=== PATIENT | female | born 1970 | race Caucasian/White ===

== ENCOUNTER 2017-09-10 17:42 | Inpatient (IN) | payer OTHER ==
[~2017-09-10] VITALS: Ht 172.7 cm; Wt 97.4 kg
[2017-09-10 17:43] VITALS: BP 132/84; PULSE 104; RESP 20; TEMP 97.9; O2SAT 98
--- NOTE | 2017-09-10 18:39 | PD ---
Physical Exam Date Seen by Provider: Sep 10, 2017 Time Seen by Provider: 18:34 Narrative 47-year-old white female presents from her apartment voluntary basis for psychological evaluation. 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 She had made statements of a suicidal nature. She has no current plan of self-harm but states that she is concerned that she may herself. She states that she was going to be turned into the board of nursing Patient without an order. No homicidal ideation. No toxic ingestions. Vital signs reviewed. Pt waiting for bed placement. Data Data Last Documented VS Vital Signs Date Time Temp Pulse Resp B/P (MAP) Pulse Ox O2 Delivery O2 Flow Rate FiO2 09/10/17 17:43 97.9 104 20 132/84 (100) 98 Room Air [facility] Medical Record Reviewed: No Supervised Visit with UJNO: Rivera Hardwick Sep 10, 2017 18:39
[2017-09-10 19:31] LABS: AUTOMATED NEUTROPHIL # 11.5 TH/MM3 (1.8-7.7); BASOPHIL # 0.1 TH/MM3 (0-0.2); BASOPHIL % 0.6 % (0.0-2.0); EOSINOPHIL # 0.1 TH/MM3 (0-0.4); EOSINOPHIL % 0.7 % (0.0-4.0); HEMATOCRIT 44.3 % (35.0-46.0); HEMO FLAGS DIFF FINAL; LYMPH % 18.7 % (9.0-44.0); LYMPHOCYTE # 2.9 TH/MM3 (1.0-4.8); MEAN CELL VOLUME 90.4 FL (80.0-100.0); MEAN CORPUSCULAR HGB CONC 34.3 % (32.0-36.0); MONO % 4.8 % (0.0-8.0); NEUT % 75.2 % (16.0-70.0); PLATELET COUNT 472 TH/MM3 (150-450); RED CELL DISTRIBUTION WIDTH 13.2 % (11.6-17.2); WHITE BLOOD COUNT 15.3 TH/MM3 (4.0-11.0)
[2017-09-10 19:32] LABS: ANION GAP 9 MEQ/L (5-15); AST (GOT) 17 U/L (15-37); BICARBONATE 25.3 MEQ/L (21.0-32.0); BLOOD UREA NITROGEN 13 MG/DL (7-18); CHLORIDE 99 MEQ/L (98-107); GLOMERULAR FILTRATION RATE 54 ML/MIN (>89); POTASSIUM 4.2 MEQ/L (3.5-5.1); SODIUM (NA) 133 MEQ/L (136-145)
[2017-09-10 19:33] LABS: ALT (GPT) 33 U/L (10-53)
[2017-09-10 19:35] LABS: ALKALINE PHOSPHATASE 73 U/L (45-117); TOTAL BILIRUBIN ADULT 0.5 MG/DL (0.2-1.0)
[2017-09-10 19:40] LABS: ACETAMINOPHEN LESS THAN 2.0 MCG/ML (10.0-30.0); ALCOHOL LESS THAN 3 MG/DL (0-5)
--- NOTE | 2017-09-10 19:41 | PD ---
HPI Chief Complaint: Psychiatric Symptoms Time Seen by Provider: 19:22 Travel History International Travel<30 days: No Contact w/Intl Traveler<30days: No Traveled to known affect area: No History of Present Illness HPI 47-year-old female that presents to the ED for evaluation of depression. Patient came here voluntarily for this. Patient is a male transferring into a female. Per patient she has been dealing with depression especially since January. Per patient in January she lost her and ever since she's been feeling more depressed. Today she had termination from her job secondary to a medical error. She is an RN. She states that she felt very depressed and hopeless and she was told to come here for evaluation. She came here on her own accord. She states that she takes no medications for depression. She states that overall she's been feeling hopeless and depressed secondary to loss of as well as worsening stressors. She denies any chest pain or shortness of breath. No other medical issues. She has a drug abuse or alcohol abuse. No allergies to medication. Has not seen a psychiatrist for this. Symptoms worse today because of loss of job. PFSH Social History Alcohol Use: No Tobacco Use: No Substance Use: No Allergies-Medications (Allergen,Severity, Reaction): Coded Allergies: No Known Allergies (Unverified , 09/10/17) Review of Systems Except as stated in HPI: all other systems reviewed are Neg Physical Exam Narrative GENERAL: SKIN: Warm and dry. HEAD: Atraumatic. Normocephalic. EYES: Pupils equal and round. No scleral icterus. No injection or drainage. ENT: No nasal bleeding or discharge. Mucous membranes pink and moist. Tongue is midline. No uvula deviation. NECK: Trachea midline. No JVD. CARDIOVASCULAR: Regular rate and rhythm. No murmurs, S3, S4. RESPIRATORY: No accessory muscle use. Clear to auscultation. Breath sounds equal bilaterally. GASTROINTESTINAL: Abdomen soft, non-tender, nondistended. Hepatic and splenic margins not palpable. MUSCULOSKELETAL: Extremities without clubbing, cyanosis, or edema. No obvious deformities. Full range of motion of the upper and lower extremities bilaterally. 2+ pulses bilaterally. NEUROLOGICAL: Awake and alert. No obvious cranial nerve deficits. Motor grossly within normal limits. Five out of 5 muscle strength in the arms and legs. Normal speech. PSYCHIATRIC: Appropriate mood and affect; insight and judgment normal. Data Data Last Documented VS Vital Signs Date Time Temp Pulse Resp B/P (MAP) Pulse Ox O2 Delivery O2 Flow Rate FiO2 09/10/17 17:43 97.9 104 20 132/84 (100) 98 Room Air Orders Orders Complete Blood Count With Diff (09/10/17 18:40) Comprehensive Metabolic Panel (09/10/17 18:40) Ed Urine Pregnancytest Poc (09/10/17 18:40) Psych Screen (09/10/17 18:40) Drug Screen, Random Urine (09/10/17 18:40) Alcohol (Ethanol) (09/10/17 18:40) Salicylates (Aspirin) (09/10/17 18:40) Tylenol (Acetaminophen) (09/10/17 18:40) Labs Laboratory Tests Test 09/10/17 18:44 White Blood Count 15.3 TH/MM3 Red Blood Count 4.90 MIL/MM3 Hemoglobin 15.2 GM/DL Hematocrit 44.3 % Mean Corpuscular Volume 90.4 FL Mean Corpuscular Hemoglobin 31.0 PG Mean Corpuscular Hemoglobin Concent 34.3 % Red Cell Distribution Width 13.2 % Platelet Count 472 TH/MM3 Mean Platelet Volume 6.9 FL Neutrophils (%) (Auto) 75.2 % Lymphocytes (%) (Auto) 18.7 % Monocytes (%) (Auto) 4.8 % Eosinophils (%) (Auto) 0.7 % Basophils (%) (Auto) 0.6 % Neutrophils # (Auto) 11.5 TH/MM3 Lymphocytes # (Auto) 2.9 TH/MM3 Monocytes # (Auto) 0.7 TH/MM3 Eosinophils # (Auto) 0.1 TH/MM3 Basophils # (Auto) 0.1 TH/MM3 CBC Comment DIFF FINAL Differential Comment Salicylates Level LESS THAN 1.7 MG/DL Urine Opiates Screen NEG Urine Barbiturates Screen NEG Urine Amphetamines Screen POS Urine Benzodiazepines Screen NEG Urine Cocaine Screen NEG Urine Cannabinoids Screen NEG MDM Medical Decision Making Medical Screen Exam Complete: Yes Emergency Medical Condition: Yes Medical Record Reviewed: Yes Interpretation(s) CBC Diagram 09/10/17 18:44 tox positive for amphetamines Differential Diagnosis Depression versus suicidal ideation versus anxiety versus adjustment disorder versus mood disorder versus bipolar disorder versus schizophrenia versus paranoid disorder versus psychosis versus substance abuse versus alcohol abuse versus alcohol induced psychosis versus homicidality addition versus cutting versus personality disorder Narrative Course 47-year-old female that presents to the ED for evaluation of psych. Patient was properly examined and was found to have signs and symptoms consistent psychiatric illness. No sign of acute medical distress. Labs were drawn. Patient was medically cleared. Okay to be seen by psych. Mental health screening was discussed with the patient. Patient will likely be admitted to the psychiatric team for further treatment and management. Diagnosis Primary Impression: Depression Qualified Codes: F32.1 - Major depressive disorder, single episode, moderate Bobby De La Gazra Sep 10, 2017 19:41
[2017-09-10] MEDS ORDERED: SPIR100T PO (19:50)
[2017-09-10] MEDS ORDERED: PHEN37.54 PO (19:55)
[2017-09-10] MEDS ORDERED: ESTR2TAB PO (19:55)
[2017-09-10] MEDS ORDERED: ACET25TA2 PO (20:17)
[2017-09-10 21:25] VITALS: BP 129/76; PULSE 85; RESP 18; TEMP 97.4
[2017-09-10] MEDS ORDERED: ACETAMINOPHEN 325 MG TAB PO PRN (21:45)
[2017-09-10] MEDS ORDERED: hydrOXYzine HCL 50 MG TAB PO PRN (21:45)
[2017-09-10] MEDS ORDERED: ALUMINUM/MAGNESIUM/SIMETH 30 ML CUP PO PRN (21:45)
[2017-09-10] MEDS ORDERED: diphenhydrAMINE HCL 50 MG CAP - HS PRN PO (21:45)
[2017-09-10] MEDS ORDERED: diphenhydrAMINE HCL 50 MG/ML VIAL - HS PRN IM (21:45)
[2017-09-10] MEDS ORDERED: MAGNESIUM HYDROXIDE SUSP 30 ML CUP PO PRN (21:45)
[2017-09-11 06:36] VITALS: BP 130/60; PULSE 75; RESP 18; TEMP 97.4
[2017-09-11] MEDS ORDERED: SPIRONOLACTONE 100 MG TAB PO SCH (09:00)
[2017-09-11] MEDS ORDERED: ESTRADIOL 1 MG TAB PO SCH (09:00)
--- NOTE | 2017-09-11 10:47 | HHI.HP ---
Provisional Diagnosis Admission Date Sep 10, 2017 at 20:59 Sentinel I. 1. Adjustment disorder, unspecified 2. Reported history of gender identity disorder Sentinel II. 1. Cluster B personality traits Certification of Person's Competence To Provide Express and Informed Consent I have personally examined Meliza Jiménez , a person being served at [facility] on, Sep 11, 2017 10:47. Express and informed consent means consent voluntarily given in writing, by a competent person, after sufficient explanation and disclosure of the subject matter involved to enable the person to make a knowing and willful decision without any element of force, fraud, deceit, duress, or other form of constraint or coercion. This person is 18 years of age or older, is not now known to be incompetent to consent to treatment with a guardian advocate, and does not have a health care surrogate or proxy currently making medical treatment decisions. I have found this person to be one of the following: [x] Competent to provide express and informed consent, as defined above, for voluntary admission to this facility and is competent to provide express and informed consent for treatment. He/she has the consistent capacity to make well reasoned, willful, and knowing decisions concerning his or her medical or mental health treatment. The person fully and consistently understands the purpose of the admission for examination/placement and is fully capable of personally exercising all rights assured [place] Incompetent to provide express and informed consent to voluntary admission, and this is incompetent to provide express and informed consent to treatment. The person must be transferred to involuntary status and a petition for a guardian advocate filed with the Circuit Court. [] Refusing to provide express and informed consent to voluntary admission but is competent to provide express and informed consent for treatment. The person must be discharged or transferred to involuntary status. Form shall be completed within 24 hours of a person's arrival at the receiving facility and filed in the clinical record of each person: 1. Admitted on a voluntary basis 2. Permitted to provide express and informed consent to his/her own treatment 3. Allowed to transfer from involuntary to voluntary status 4. Prior to permitting a person to consent to his or her own treatment after having been previously found incompetent to consent to treatment. History of Present Illness Capacity: Has Capacity Psych Chief Complaint: psychiatric evaluation HPI Ms. Jiménez is a 47-year-old male to female transgender patient who presented to the emergency department voluntarily for psychiatric evaluation. 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 Psych screen reviewed. Reviewing the electronic medical record, it appears this is patient's first visit to [facility]. Patient seen and examined with nurse. Chart reviewed. Case discussed with nursing staff. There has been no evidence of behavioral disturbance overnight; no evidence of any suicidality or homicidality on the inpatient unit. On my examination today, the patient is requesting discharge from the inpatient psychiatric unit. 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 She says that her program engagement director thought it would be prudent for the patient to get psychiatric evaluation because of her acute distress at this termination. Loss of her job was particularly distressing because it placed her transgender surgery in jeopardy due to loss of insurance. 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 She denies any suicidal or homicidal ideation, intent or plan on direct questioning and contracts for safety. She is future oriented with several near and correction goals and says that she would never hurt herself because she wants to see her gender reassignment surgery through to completion. Mood has been mildly depressed, and she notes that she is still grieving the of her in March of this year. However, the patient denies hopelessness, worthlessness or other depressive symptoms. She does report decreased appetite and sleep, but these are reportedly due to her use of phentermine for weight loss. Affect is full and reactive and the patient smiles appropriately at intervals. No hypomanic or manic symptoms elicited she denies any audiovisual hallucinations, and I can elicit no delusional beliefs. Some cluster B personality traits noted. She denies any urge to violence against her former employers or coworkers, although she does say that she may get a manganese breaker to pursue legal remedy for her termination. The remainder of the psychiatric ROS is negative. No physical complaints. Past psychiatric history: The patient reports a history of gender identity disorder. She is seeing a psychotherapist by the name of Ruby Breaux through [facility]. No previous psychiatric admissions. She denies history of suicide attempts. With the patient's permission, I endeavored on two separate occasions to obtain collateral information from her mother, Racheal Jiménez at [phone]. I left voicemails requesting a call back. With the patient's permission, I was able to reach her psychotherapist Ruby Breaux at [phone]. She reports that the patient has no history of suicidal behavior so far as she knows. She reports patient has not articulated any suicidal ideation in session or in groups. She has no safety concerns about the patient being discharged from the inpatient psychiatric unit today. She has a follow up appointment with the patient tomorrow. Review of Systems Except as stated in HPI: all other systems reviewed are Neg Past Psych History Psychological trauma history Patient denies any trauma history. Violence risk - others (6 mos) Lower imminent risk. Denies homicidal ideation or urge to violence. No known history of violent behavior. Denies any access to guns or firearms. No evidence of any unstable mental illness as defined under the [place] act that might confer risk for violent behavior. Violence risk - self (6 mos) Lower imminent risk. Denies suicidal ideation and contracts for safety. Denies any history of suicide attempts in the past. Denies any family history of suicide. Denies any substance use disorder. Denies any access to guns or firearms. Future oriented with several near and long-term goals. Acute stressor, namely loss of job/insurance placing surgery in jeopardy, has already reportedly been resolved. Reassuring collateral from patient's psychotherapist. No evidence of any severely unstable mental illness as defined under the [place] act that might confer risk for suicide. Cluster B personality traits may confer some degree of chronic but not acute or imminent risk, and in any event this risk would not be ameliorated by retaining the patient on the inpatient unit. Substance Abuse History Drugs/Alcohol past 12 months Patient denies any abuse of drugs or alcohol. Her urine toxicology was positive for amphetamines but she is prescribed phentermine for weight loss. Past Family Social History Coded Allergies: No Known Allergies (Unverified , 09/10/17) Past Medical History See electronic medical record Reported Medications Acetaminophen/Diphenhydramine (Acetaminophen Pm Caplet) 500 Mg-25 Mg Tablet, PO HS Y for SLEEP 09/10/17 Phentermine (Phentermine) 37.5 Mg Cap, 37.5 MG PO DAILY, CAP 09/10/17 Estradiol (Estradiol) 2 Mg Tab, 4 MG PO DAILY for Estrogen Supplements, #30 TAB 0 Refills 09/10/17 Spironolactone (Spironolactone) 100 Mg Tab, 200 MG PO DAILY, #30 TAB 0 Refills 09/10/17 Current Medications Medications (Trade) Dose Ordered Sig/Isabella Route Start Time Stop Time Status Last Admin (Aldactone) 200 mg DAILY PO 09/11/17 09:00 09/11/17 08:40 (Estradiol) 4 mg DAILY PO 09/11/17 09:00 09/11/17 08:40 (Atarax) 50 mg Q6H PRN PO 09/10/17 21:45 (Benadryl) 50 mg HS PRN PO 09/10/17 21:45 (Benadryl Inj) 50 mg HS PRN IM 09/10/17 21:45 (Tylenol) 650 mg Q4H PRN PO 09/10/17 21:45 09/11/17 04:44 (Milk Of Magnesia Liq) 30 ml DAILY PRN PO 09/10/17 21:45 (Mag-Al Plus Susp Liq) 30 ml Q6H PRN PO 09/10/17 21:45 Family Psych History Patient denies any family history of serious mental illness. She denies any family history of suicide. Social History Patient's in March of this year. Patient does note that relationship with was somewhat fractious before her passing because of the patient's gender identity issues. She lives with 2 transgender roommates whom she describes as supportive. Her parents also live a few miles down the road. She also has 5 pet dogs. She works as a nurse. She denies any access to guns or firearms. No particular latter-day or spiritual beliefs. She denies any history. Denies any legal history. Patient's Strengths (min. 2) Able to access clinical care. Verbally fluent. Physical Exam Physical examination completed by ED provider. On my examination today, the patient appears to be in no acute physical distress. No motor abnormalities noted. Labs and vitals reviewed: Vital Signs Vital Signs Date Time Temp Pulse Resp B/P (MAP) Pulse Ox O2 Delivery O2 Flow Rate FiO2 09/11/17 06:36 97.4 75 18 130/60 (83) 09/10/17 17:43 98 Room Air Lab Results Item Value Date Time White Blood Count 15.3 TH/MM3 H 09/10/171843 Hemoglobin 15.2 GM/DL 09/10/171843 Platelet Count 472 TH/MM3 H 09/10/171843 Sodium Level 133 MEQ/L L 09/10/171843 Potassium Level 4.2 MEQ/L 09/10/171843 Chloride Level 99 MEQ/L 09/10/171843 Carbon Dioxide Level 25.3 MEQ/L 09/10/171843 Blood Urea Nitrogen 13 MG/DL 09/10/171843 Creatinine 1.09 MG/DL H 09/10/171843 Aspartate Amino Transf (AST/SGOT) 17 U/L 09/10/171843 Alanine Aminotransferase (ALT/SGPT) 33 U/L 09/10/171843 Alkaline Phosphatase 73 U/L 09/10/171843 Urine Amphetamines Screen POS H 09/10/171843 Ethyl Alcohol Level LESS THAN 3 MG/DL 09/10/171843 Mild leukocytosis noted, patient has no signs or symptoms of infection. Mild hyponatremia noted. Toxicological results noted. Laboratories ordered for this morning are presently in process. Mental Status Examination Appearance: Appropriate (In hospital attire. Well groomed.) Consciousness: Alert Orientation: x4 Motor Activity: Other (no motor abnormalities noted) Speech: Unremarkable Language: Adequate Fund of Knowledge: Adequate Attention and Concentration: Adequate Memory: Unremarkable Mood: Other (mildly depressed) Affect: Appropriate (remains full and reactive) Thought Process & Associations: Logical, Goal directed, Linear Thought Content: Appropriate Hallucination Type: None Delusion Type: None Suicidal Ideation: No Suicidal Plan: No Suicidal Intention: No Homicidal Ideation: No Homicidal Plan: No Homicidal Intention: No Insight: Adequate Judgment: Adequate Assessment & Plan Problem List: (1) Adjustment disorder, unspecified ICD Codes: F43.20 - Adjustment disorder, unspecified Assessment & Plan 47-year-old patient with psychiatric history as detailed above presently voluntarily admitted to the inpatient psychiatric unit. Although she was apparently more dysphoric and tearful yesterday when screened by the nurse, patient seems to have reconstituted well and is this morning articulating no more than mildly depressed mood. She is presently denying suicidal or homicidal ideation and marcus for safety. There is no evidence of any severely unstable mental illness as defined under the [place] act. She appears to be attending to her basic needs. Suicide and violence risk assessment, detailed above, suggest lower imminent risk. I have obtained reassuring collateral from the patient's psychotherapist. Synthesizing this information and weighing the relevant factors, I information operator the patient does not presently meet criteria for involuntary psychiatric hospitalization. Given that she is requesting discharge from the inpatient psychiatric unit today, I am obliged to arrange for her discharge home in stable condition. I recommend that she follow -up with her outpatient mental health providers, and she does have an appointment with her psychotherapist tomorrow. I have counseled the patient regarding warning signs for need to return to the psychiatric emergency room as part of a general safety plan. I have provided the patient with no prescriptions on discharge. This note serves also as my discharge summary. Request HC Surrog/Guard Advoc?: No Problem Qualifiers (1) Adjustment disorder, unspecified: Qualified Codes: F43.20 - Adjustment disorder, unspecified Raj Gomez MD Sep 11, 2017 10:47
== END 2017-09-11 13:54 | disposition home or self-care (01) | DRG 881 ==
LOC: NEPJ 17:42 → NEDA 20:59 → H260 21:24
PROVIDERS: ADMIT Psychiatry & Neurology Psychiatry; ATTEND Psychiatry & Neurology Psychiatry
DX: F43.21 Adjustment disorder with depressed mood (principal); F64.8 Other gender identity disorders
CPT/HCPCS: 80053; 80307; 85025